=== PATIENT | female | born 1965 ===

== ENCOUNTER 2016-10-14 12:15 | Emergency (ER) | payer MEDICAID ==
[2016-10-14 12:36] VITALS: BMI 23.0
[2016-10-14 12:41] VITALS: BP 123/71; PULSE 84; RESP 20; TEMP 97.5; O2SAT 97
--- NOTE | 2016-10-14 13:32 | C.PDOC ---
History Of Present Illness 50 y/o female hx of prior back injury, seen by pain management in past for possible herniated disc, now complains of bilateral foot pain, low back pain and left knee pain x1 week with no new injury. pt taking ibuprofen with no improvement, pt no longer seeing pain management. Pt denies fever, chills, weakness, numbness, bladder or bowel dysfunction, saddle anesthesia or any other complaints. denies any psychiatric issues today. Time Seen by Provider: 10/14/16 12:54 Chief Complaint (Nursing): Back Pain History Per: Patient History/Exam Limitations: no limitations Onset/Duration Of Symptoms: Days Current Symptoms Are (Timing): Still Present Quality Of Discomfort: "Pain" Severity: Moderate Previous Symptoms: Chronic Pain Associated Symptoms: None Recent travel outside of the [place]: No Past Medical History Reviewed: Historical Data, Nursing Documentation, Vital Signs Vital Signs: Last Vital Signs Temp 97.5 F L 10/14/16 12:36 Pulse 84 10/14/16 12:36 Resp 20 10/14/16 12:36 BP 123/71 10/14/16 12:36 Pulse Ox 97 10/14/16 23:13 - Medical History PMH: Anxiety, Asthma, Back Problems (scoliosis, sciatica), Bipolar Disorder, Depression, Seizures - [facility] Procedures GROUP PSYCHOTHERAPY (06/27/16) INDIVIDUAL PSYCHOTHERAPY, BEHAVIORAL (06/27/16) Family History: States: Unknown Family Hx - Social History Hx Tobacco Use: Yes Hx Alcohol Use: No Hx Substance Use: Yes (percocet) - Immunization History Hx Tetanus Toxoid Vaccination: No Hx Influenza Vaccination: No Hx Pneumococcal Vaccination: Yes Review Of Systems Except As Marked, All Systems Reviewed And Found Negative. Constitutional: Negative for: Fever, Chills Musculoskeletal: Positive for: Back Pain, Foot Pain Neurological: Negative for: Weakness, Numbness Physical Exam - Physical Exam Appears: Non-toxic, No Acute Distress, Other (sititing comfortably on stretcher , able to bend to undress with no difficulty. ) Skin: Warm, Dry, No Rash Head: Atraumatic, Normacephalic Neck: Normal, Normal ROM, Supple Chest: Symmetrical Cardiovascular: Rhythm Regular, No Murmur Respiratory: Normal Breath Sounds, No Rales, No Rhonchi, No Wheezing Back: Vertebral Tenderness (lumbar), Paraspinal Tenderness (lumbar) Extremity: Normal ROM, Tenderness (to bilateral heels), Capillary Refill (<2 seconds), No Swelling, Other (no erythema) Extremity: Bilateral: Atraumatic Pulses: Left Dorsalis Pedis: Normal, Right Dorsalis Pedis: Normal Neurological/Psych: Oriented x3, Normal Speech, Normal Motor, Normal Sensation ED Course And Treatment O2 Sat by Pulse Oximetry: 97 (room air) Pulse Ox Interpretation: Normal Progress Note: Toradol, XR lumbar spine negative for fracture or dislocation. Medical Decision Making Medical Decision Making: no fx noted on ls spine xray. pt feeling some relief after toradol, will d/c with muscle relaxant. f/u ortho, med clinic and podiatry Disposition Counseled Patient/Family Regarding: Diagnosis, Need For Followup, Rx Given - Disposition [facility] [Outside] Podiatry Clinic [Outside] Disposition: HOME/ ROUTINE Disposition Time: 14:57 Condition: STABLE Additional Instructions: Follow up in Medical clinic- find out what days ortho clinic is; also suggest referral to pain management clinic. Follow up in podiatry clinic for foot pain. Take muscle relaxants 3 times a day- no driving or operating machinery, makes you sleepy. Continue taking Ibuprofen. Prescriptions: Cyclobenzaprine [Cyclobenzaprine HCl] 10 mg PO Q8 #9 tab Instructions: Back Pain (ED) Forms: General Discharge Instructions - Clinical Impression Clinical Impression: Low back pain - PA / DENTISTRY PROFESSOR / Resident Statement MD/DO has reviewed & agrees with the documentation as recorded. - Scribe Statement The provider has reviewed the documentation as recorded by the Herb Ingram All medical record entries made by the Herb were at my direction and personally dictated by me. I have reviewed the chart and agree that the record accurately reflects my personal performance of the history, physical exam, medical decision making, and the department course for this patient. I have also personally directed, reviewed, and agree with the discharge instructions and disposition.
--- NOTE | 2016-10-14 15:37 | RAD ---
PROCEDURE: Radiographs of the Lumbar Spine. HISTORY: midline lumbar back pain COMPARISON: No prior. FINDINGS: BONES: Normal alignment. No listhesis. No fracture. DISC SPACES: Unremarkable. OTHER FINDINGS: None. IMPRESSION: Unremarkable radiographs of the lumbar spine.
== END 2016-10-14 15:04 | disposition home or self-care (01) ==
LOC: C.ER 12:15
DX: M54.5 Low back pain (principal)
CPT/HCPCS: 72100; 96372; 99283; J1885

== ENCOUNTER 2016-11-30 23:38 | Emergency (ER) | payer MEDICAID ==
[2016-11-30 23:38] VITALS: BMI 23.0
[2016-11-30 23:55] VITALS: PULSE 77; RESP 16
--- NOTE | 2016-12-01 00:30 | C.PDOC ---
History Of Present Illness A 51 y/o F with a hx of chronic left knee pain, c/o left knee pain. Pt notes running out of her pain medication. Denies weakness, numbness, trauma, or any other complaints. Time Seen by Provider: 12/01/16 00:40 Chief Complaint (Nursing): Lower Extremity Problem/Injury History Per: Patient History/Exam Limitations: no limitations Onset/Duration Of Symptoms: Persistent (Chronic) Current Symptoms Are (Timing): Still Present Severity: Mild Recent travel outside of the [place]: No Additional History Per: Patient Past Medical History Reviewed: Historical Data, Nursing Documentation, Vital Signs Vital Signs: Last Vital Signs Temp 98 F 12/01/16 00:51 Pulse 77 12/01/16 00:51 Resp 16 12/01/16 00:51 BP 118/76 12/01/16 00:51 Pulse Ox 100 12/01/16 00:54 - Medical History PMH: Anxiety, Asthma, Back Problems (scoliosis, sciatica), Bipolar Disorder, Depression, Post Traumatic Stress Disorder, Seizures Denies: Diabetes, Hepatitis, HIV, HTN, Sexually Transmitted Disease - [facility] Procedures GROUP PSYCHOTHERAPY (06/27/16) INDIVIDUAL PSYCHOTHERAPY, BEHAVIORAL (06/27/16) Family History: States: Unknown Family Hx - Social History Hx Tobacco Use: Yes Hx Alcohol Use: No Hx Substance Use: No - Immunization History Hx Tetanus Toxoid Vaccination: No Hx Influenza Vaccination: Yes Hx Pneumococcal Vaccination: Yes Review Of Systems Except As Marked, All Systems Reviewed And Found Negative. Constitutional: Negative for: Other (Trauma) Musculoskeletal: Positive for: Leg Pain (Left knee pain) Neurological: Negative for: Weakness, Numbness Physical Exam - Physical Exam Appears: Non-toxic, No Acute Distress Skin: Warm, Dry Head: Atraumatic, Normacephalic Extremity: No Pedal Edema, Capillary Refill (<2secs), No Deformity, No Swelling , No Other (Congestion or redness) Pulses: Left Dorsalis Pedis: Normal, Right Dorsalis Pedis: Normal Neurological/Psych: Oriented x3, Normal Speech, Normal Cognition, Normal Motor, Normal Sensation, Other (No focal deficit) ED Course And Treatment O2 Sat by Pulse Oximetry: 100 (RA) Pulse Ox Interpretation: Normal Medical Decision Making Medical Decision Making: Impression: A 51 y/o F c/o left knee pain. Plans: -Toradol -Reassess Disposition Counseled Patient/Family Regarding: Diagnosis - Disposition Referrals: [facility] [Outside] Disposition: HOME/ ROUTINE Disposition Time: 00:29 Condition: STABLE Prescriptions: Ketorolac Tromethamine [Toradol] 10 mg PO Q8 #3 tab Forms: [facility] (South Korean) - POA Present On Arrival: None - Clinical Impression Clinical Impression: Arthralgia of knee - Scribe Statement The provider has reviewed the documentation as recorded by the Scribgiuliana portillo All medical record entries made by the Stevieibe were at my direction and personally dictated by me. I have reviewed the chart and agree that the record accurately reflects my personal performance of the history, physical exam, medical decision making, and the department course for this patient. I have also personally directed, reviewed, and agree with the discharge instructions and disposition.
[2016-12-01 00:52] VITALS: BP 118/76; TEMP 98
[2016-12-01 00:54] VITALS: O2SAT 100
== END 2016-12-01 00:52 | disposition home or self-care (01) ==
LOC: C.ER 23:38
DX: M25.562 Pain in left knee (principal)
CPT/HCPCS: 96372; 99284; J1885

== ENCOUNTER 2016-12-15 17:36 | Emergency (ER) | payer MEDICAID ==
[2016-12-15 17:37] VITALS: BMI 23.0
--- NOTE | 2016-12-15 18:43 | C.PDOC ---
History Of Present Illness 51 year old female presents to the ED with complaints of right sided back pain that radiates down to the right leg. Patient notes a history of sciatica and normally takes Toradol and Flexeril but has run out. She denies any new symptoms , trauma, urinary or bowel incontinence. No change in sensation. Pt has had the same symptom sin the past. No new symptoms. Time Seen by Provider: 12/15/16 18:08 Chief Complaint (Nursing): Back Pain History Per: Patient History/Exam Limitations: no limitations Onset/Duration Of Symptoms: Persistent Current Symptoms Are (Timing): Still Present Quality Of Discomfort: "Pain" Previous Symptoms: Back Pain (history of sciatica ) Associated Symptoms: None Recent travel outside of the [place]: No Additional History Per: Prior Records Past Medical History Reviewed: Historical Data, Nursing Documentation, Vital Signs Vital Signs: Last Vital Signs Temp 98.6 F 12/15/16 19:21 Pulse 78 12/15/16 19:21 Resp 18 12/15/16 19:21 BP 106/68 12/15/16 19:21 Pulse Ox 98 12/15/16 21:29 - Medical History PMH: Anxiety, Asthma, Back Problems (scoliosis, sciatica), Bipolar Disorder, Depression, Post Traumatic Stress Disorder, Seizures - [facility] Procedures GROUP PSYCHOTHERAPY (06/27/16) INDIVIDUAL PSYCHOTHERAPY, BEHAVIORAL (06/27/16) Family History: States: Unknown Family Hx - Social History Hx Tobacco Use: Yes Hx Alcohol Use: No Hx Substance Use: No - Immunization History Hx Tetanus Toxoid Vaccination: No Hx Influenza Vaccination: Yes Hx Pneumococcal Vaccination: Yes Review Of Systems Constitutional: Negative for: Fever, Chills Cardiovascular: Negative for: Chest Pain Respiratory: Negative for: Shortness of Breath Gastrointestinal: Negative for: Nausea Musculoskeletal: Positive for: Back Pain, Leg Pain (right leg pain radiating from back ) Neurological: Negative for: Weakness, Numbness Physical Exam - Physical Exam Appears: Non-toxic, No Acute Distress, Other (Patient ambulating around ED ) Skin: Warm, Dry Head: Atraumatic Eye(s): bilateral: Normal Inspection, EOMI Nose: Normal Oral Mucosa: Moist Neck: Normal ROM, No Paracervical Tenderness, Supple Chest: Symmetrical Cardiovascular: Rhythm Regular Respiratory: Normal Breath Sounds, No Accessory Muscle Use Gastrointestinal/Abdominal: Soft, No Tenderness Back: No CVA Tenderness, No Vertebral Tenderness, Paraspinal Tenderness (right sided paralumbar tenderness) Extremity: Normal ROM, No Tenderness, Capillary Refill (good capillary refill, less than 2 seconds ) Extremity: Bilateral: Atraumatic Pulses: Left Dorsalis Pedis: Normal, Right Dorsalis Pedis: Normal Neurological/Psych: Oriented x3, Normal Speech, Normal Cognition, Normal Motor, Normal Sensation Gait: Steady ED Course And Treatment O2 Sat by Pulse Oximetry: 98 (room air ) Progress Note: Patient was given Decadron Inj, Toradol, and and Flexeril. On reassessment, patient is resting comfortably, with improvement of back pain. Patient remains afebrile, with no bony tenderness, extremity numbness or weakness, or abdominal pain. Patient is ambulatory in the emergency department with no signs of discomfort. Patient was advised to follow up with physician/ clinic in 1-2 days. Disposition - Disposition Disposition: HOME/ ROUTINE Disposition Time: 18:41 Condition: STABLE Additional Instructions: Follow up with primary medical doctor in 1-3 days without fail for further evaluation. Take medications as prescribed. Return to the emergency department at any time if symptoms persist or worsen. Prescriptions: Cyclobenzaprine [Cyclobenzaprine HCl] 10 mg PO TID #20 tab Ketorolac Tromethamine [Toradol] 10 mg PO Q6 PRN #20 tab PRN Reason: Pain, Moderate (4-7) Instructions: Sciatica (ED) Forms: [facility] (Algerian) - Clinical Impression Clinical Impression: Sciatica - Scribe Statement The provider has reviewed the documentation as recorded by the Scribgiuliana Hendrix All medical record entries made by the Stevieibgiuliana were at my direction and personally dictated by me. I have reviewed the chart and agree that the record accurately reflects my personal performance of the history, physical exam, medical decision making, and the department course for this patient. I have also personally directed, reviewed, and agree with the discharge instructions and disposition.
[2016-12-15 19:22] VITALS: BP 106/68; PULSE 78; RESP 18; TEMP 98.6
[2016-12-15] MEDS ORDERED: Dexamethasone 4 mg/1 ml ONE (19:27)
[2016-12-15] MEDS ORDERED: Dexamethasone 4 mg/1 ml IM STA (19:29)
[2016-12-15 21:17] VITALS: O2SAT 98
== END 2016-12-15 19:37 | disposition home or self-care (01) ==
LOC: C.ER 17:36
DX: M54.31 Sciatica, right side (principal)
CPT/HCPCS: 96372; 99283; J1100; J1885

== ENCOUNTER 2016-12-27 09:56 | Emergency (ER) | payer MEDICAID ==
[2016-12-27 09:56] VITALS: BMI 23.0
[2016-12-27 10:06] VITALS: RESP 18; TEMP 98.6
[2016-12-27 11:32] LABS: URINE BILIRUBIN NEGATIVE (NEGATIVE); URINE BLOOD NEGATIVE (NEGATIVE); URINE COLOR Yellow (YELLOW); URINE GLUCOSE (UA) NORMAL (Normal); URINE KETONE NEGATIVE (NEGATIVE); URINE LEUKOCYTE ESTERASE TRACE Leu/uL (Negative); URINE PROTEIN NEGATIVE (NEGATIVE); URINE UROBILINOGEN NORMAL mg/dL (0.2-1.0); WBC URINE 1 /hpf (0-5)
--- NOTE | 2016-12-27 12:04 | C.PDOC ---
History Of Present Illness Pt c/o lower back pain. Time Seen by Provider: 12/27/16 10:28 Chief Complaint (Nursing): Back Pain History Per: Patient Onset/Duration Of Symptoms: Days (chronic), Waxing/Waning Current Symptoms Are (Timing): Still Present Quality Of Discomfort: "Pain" Severity: Moderate Previous Symptoms: Back Pain Exacerbating Factor(s): Movement Additional History Per: Prior Records Past Medical History Reviewed: Historical Data, Nursing Documentation, Vital Signs Vital Signs: Last Vital Signs Temp 98.6 F 12/27/16 10:06 Pulse 76 12/27/16 10:06 Resp 18 12/27/16 10:06 BP 99/67 L 12/27/16 10:06 Pulse Ox 95 12/27/16 10:06 - Medical History PMH: Anxiety, Asthma, Back Problems (scoliosis, sciatica), Bipolar Disorder, Depression, Post Traumatic Stress Disorder, Seizures Surgical History: No Surg Hx - [facility] Procedures GROUP PSYCHOTHERAPY (06/27/16) INDIVIDUAL PSYCHOTHERAPY, BEHAVIORAL (06/27/16) Family History: States: Unknown Family Hx - Social History Hx Tobacco Use: Yes Hx Alcohol Use: No Hx Substance Use: No - Immunization History Hx Tetanus Toxoid Vaccination: No Hx Influenza Vaccination: Yes Hx Pneumococcal Vaccination: Yes Review Of Systems Except As Marked, All Systems Reviewed And Found Negative. Constitutional: Negative for: Fever, Weakness Cardiovascular: Negative for: Chest Pain Respiratory: Negative for: Shortness of Breath Gastrointestinal: Positive for: Constipation. Negative for: Vomiting Genitourinary: Positive for: Dysuria (?) Musculoskeletal: Positive for: Back Pain Skin: Negative for: Rash Neurological: Negative for: Weakness, Numbness, Seizures, Altered Mental Status Physical Exam - Physical Exam Appears: Non-toxic, No Acute Distress Skin: Normal Color, Warm, Dry, No Rash Head: Atraumatic, Normacephalic Eye(s): bilateral: Normal Inspection, PERRL, EOMI Neck: Normal ROM, Supple Cardiovascular: Rhythm Regular Respiratory: Normal Breath Sounds, No Accessory Muscle Use Gastrointestinal/Abdominal: Soft Back: No CVA Tenderness, No Vertebral Tenderness, Paraspinal Tenderness (lumbar) Extremity: Normal ROM Neurological/Psych: Oriented x3, Normal Motor, Normal Sensation ED Course And Treatment O2 Sat by Pulse Oximetry: 95 Pulse Ox Interpretation: Normal Reassessment Condition: Improved Disposition Counseled Patient/Family Regarding: Studies Performed, Diagnosis, Need For Followup, Rx Given - Disposition Disposition: HOME/ ROUTINE Disposition Time: 12:04 Condition: IMPROVED Additional Instructions: Follow up with your doctor for further evaluation and treatment. Return to the ER if you develop fever, vomiting, weakness, numbness, worsening of symptoms or if you have any other concerns. Prescriptions: Docusate [Colace] 100 mg PO BID PRN #60 cap PRN Reason: Constipation Famotidine [Pepcid] 20 mg PO BID #30 tab Naproxen [Naprosyn] 1 tab PO BID PRN #20 tab PRN Reason: Pain Instructions: Chronic Back Pain (ED) Forms: [facility] (Nepali) - Clinical Impression Clinical Impression: Lumbar back pain
[2016-12-27 12:10] VITALS: BP 101/72; PULSE 71; O2SAT 98
== END 2016-12-27 12:17 | disposition home or self-care (01) ==
LOC: SUPCPDRO 09:56 → C.ER 09:56
DX: M54.5 Low back pain (principal)
CPT/HCPCS: 81001; 87086; 96372; 99284; J1885

== ENCOUNTER 2017-02-08 19:16 | Emergency (ER) | payer MEDICAID ==
[2017-02-08 19:17] VITALS: BMI 23.0
[2017-02-08 19:33] VITALS: TEMP 98.6
[2017-02-08] MEDS ORDERED: Iohexol 240 (50 ml) PO STA (20:33)
[2017-02-08] MEDS ORDERED: Sodium Chloride 0.9% 1,000 ML IV ONE (20:33)
[2017-02-08 21:04] LABS: BASO % 0.6 % (0.0-2.0); EOS # 0.3 K/uL (0.0-0.7); EOS % 3.7 % (0.0-4.0); HEMATOCRIT 33.9 % (34.0-47.0); LYMPH # 2.4 K/uL (1.0-4.3); LYMPH % 34.9 % (20.0-40.0); MEAN CELL VOLUME 89.2 fL (81.0-99.0); MEAN CORPUSCULAR HEMOGLOBIN 30.5 pg (27.0-31.0); MEAN CORPUSCULAR HGB CONC 34.2 g/dL (33.0-37.0); MEAN PLATELET VOLUME 8.9 fL (7.2-11.7); MONO # 0.4 K/uL (0.0-0.8); MONO % 6.3 % (0.0-10.0); NRBC % 0.1 % (0.0-2.0); RED CELL DISTRIBUTION WIDTH 13.2 % (11.5-14.5); WHITE BLOOD COUNT 6.9 K/uL (4.8-10.8)
[2017-02-08] MEDS ORDERED: Sodium Chloride 0.9% 1,000 ML ONE (21:05)
[2017-02-08] MEDS ORDERED: Iohexol 240 (50 ml) ONE (21:05)
[2017-02-08 21:10] LABS: CHLORIDE 104 mmol/L (98-107); SODIUM 137 mmol/L (132-148)
[2017-02-08 21:12] LABS: BILIRUBIN,TOTAL 0.4 mg/dL (0.2-1.3); GFR AFRICAN-AMERICAN > 60
[2017-02-08 21:13] LABS: ALB/GLOB RATIO 1.4 (1.0-2.1); ALKALINE PHOSPHATASE 74 U/L (38-126); ALT/SGPT 26 U/L (9-52); AST/SGOT 17 U/L (14-36); BLOOD UREA NITROGEN 21 mg/dL (7-17); CALCIUM 9.4 mg/dl (8.6-10.4); CARBON DIOXIDE 21 mmol/L (22-30); GLUCOSE,RANDOM 92 mg/dL (65-105); TOTAL PROTEIN 7.3 g/dL (6.3-8.3)
[2017-02-08 21:15] LABS: URINE BACTERIA RARE (<OCC); URINE BILIRUBIN NEGATIVE (NEGATIVE); URINE BLOOD NEGATIVE (NEGATIVE); URINE COLOR Yellow (YELLOW); URINE GLUCOSE (UA) NORMAL (Normal); URINE KETONE NEGATIVE (NEGATIVE); URINE LEUKOCYTE ESTERASE NEG Leu/uL (Negative); URINE PROTEIN NEGATIVE (NEGATIVE); URINE UROBILINOGEN NORMAL mg/dL (0.2-1.0); WBC URINE < 1 /hpf (0-5)
--- NOTE | 2017-02-08 21:23 | C.PDOC ---
History Of Present Illness Patient is a 51 y/o menopausal female who presents to the ED with a complaint of diffuse lower abdominal pain that began approximately 3 weeks ago. Patient states that when in pain, her abdomen is distended and bloated; describes pain as constant and severe. Denies any associated nausea, vomiting, or vaginal bleeding. Patient admits to normal bowel movements and notes a similar episode a few months ago. Patient experienced constipation and took Miralax; symptoms were resolved. she does take laxatives daily to combat the constipation caused by her medication. Denies fever and chills. No other complaints at this time. Time Seen by Provider: 02/08/17 20:21 Chief Complaint (Nursing): Abdominal Pain History Per: Patient History/Exam Limitations: no limitations Onset/Duration Of Symptoms: Days (approximately 3 weeks) Current Symptoms Are (Timing): Still Present Severity: Severe Location Of Pain/Discomfort: Diffuse (along lower abdomen) Past Medical History Reviewed: Historical Data, Nursing Documentation, Vital Signs Vital Signs: Last Vital Signs Temp 98.6 F 02/08/17 19:24 Pulse 75 02/08/17 21:59 Resp 18 02/08/17 21:59 BP 125/80 02/08/17 21:59 Pulse Ox 99 02/08/17 22:53 - Medical History PMH: Anxiety, Asthma, Back Problems (scoliosis, sciatica), Bipolar Disorder, Depression, Post Traumatic Stress Disorder, Seizures Denies: HTN Surgical History: No Surg Hx - [facility] Procedures GROUP PSYCHOTHERAPY (06/27/16) INDIVIDUAL PSYCHOTHERAPY, BEHAVIORAL (06/27/16) Family History: States: Unknown Family Hx - Social History Hx Tobacco Use: Yes Hx Alcohol Use: No Hx Substance Use: No - Immunization History Hx Tetanus Toxoid Vaccination: No Hx Influenza Vaccination: Yes Hx Pneumococcal Vaccination: Yes Review Of Systems Constitutional: Negative for: Fever, Chills Cardiovascular: Negative for: Chest Pain Respiratory: Negative for: Shortness of Breath Gastrointestinal: Positive for: Abdominal Pain (diffuse lower abdomen). Negative for: Nausea, Vomiting, Constipation Genitourinary: Positive for: Other. Negative for: Dysuria, Vaginal Bleeding Physical Exam - Physical Exam Appears: Well, Non-toxic, In Acute Distress Skin: Normal Color, Warm, Dry Head: Atraumatic, Normacephalic Oral Mucosa: Moist Chest: Symmetrical Cardiovascular: Rhythm Regular, No Murmur Respiratory: Normal Breath Sounds, No Rales, No Rhonchi, No Wheezing Gastrointestinal/Abdominal: Bowel Sounds (normal but quiet; non-tympanitic), Tenderness (diffuse over lower abdomen), Distention (large, rotund), No Guarding , No Rebound, Other (no fluid) Neurological/Psych: Oriented x3, Normal Speech, Normal Cognition ED Course And Treatment - Laboratory Results Result Diagrams: 02/08/17 20:58 02/08/17 20:58 Lab Interpretation: Normal Urine POC: Negative O2 Sat by Pulse Oximetry: 99 Pulse Ox Interpretation: Normal - CT Scan/US CT A/P Other Rad Studies (CT/US): Read By Radiologist, Radiology Report Reviewed CT/US Interpretation: No acute intra-abdominal pathology, as detailed above. Progress Note: CT A/P ordered; Omnipaque, Morphine, and IV fluids administered. Reevaluation Time: 23:00 Reassessment Condition: Unchanged (Patient still c/o abdominal pain and cramping. Treated with Toradol and Bentyl.) Disposition Counseled Patient/Family Regarding: Studies Performed, Diagnosis, Need For Followup, Rx Given - Disposition Disposition: HOME/ ROUTINE Disposition Time: 23:04 Condition: IMPROVED Additional Instructions: Follow up with your doctor at [facility] at your scheduled appointment on 02/10. Prescriptions: Ketorolac Tromethamine [Toradol] 10 mg PO QID PRN #20 tab PRN Reason: Pain, Severe (8-10) Instructions: Acute Abdominal Pain (ED) Forms: [facility] (Moroccan) - Clinical Impression Clinical Impression: Abdominal pain - Scribe Statement The provider has reviewed the documentation as recorded by the Scribe Emili Gaines All medical record entries made by the Scribe were at my direction and personally dictated by me. I have reviewed the chart and agree that the record accurately reflects my personal performance of the history, physical exam, medical decision making, and the department course for this patient. I have also personally directed, reviewed, and agree with the discharge instructions and disposition.
[2017-02-08 22:00] VITALS: BP 125/80; PULSE 75; RESP 18
[2017-02-08] MEDS ORDERED: Iodixanol 320 MG/ML 100 ML BOTTLE IV ONE (22:17)
--- NOTE | 2017-02-08 22:49 | CT ---
EXAM: CT Abdomen and Pelvis With Intravenous Contrast CLINICAL HISTORY: 51 years old, female; Pain and signs and symptoms; Bloating; Abdominal pain; Generalized; Additional info: Abd pain TECHNIQUE: Axial computed tomography images of the abdomen and pelvis with intravenous contrast. All CT scans at this facility use one or more dose reduction techniques, viz.: automated exposure control; ma/kV adjustment per patient size (including targeted exams where dose is matched to indication; i.e. head); or iterative reconstruction technique. Coronal and sagittal reformatted images were created and reviewed. CONTRAST: 100 mL of visipaque 320 administered intravenously. COMPARISON: No relevant prior studies available. FINDINGS: Lower thorax: The bilateral lung bases are clear. ABDOMEN: Liver: No acute findings. Gallbladder and bile ducts: The gallbladder is decompressed. No calcified stones. No significant intra- or extrahepatic biliary ductal dilation. Pancreas: Enhances homogeneously. No ductal dilation. No discrete mass. Spleen: No acute findings. Adrenals: No acute findings. Kidneys and ureters: No acute findings. No hydronephrosis or renal calculi. No discrete solid mass. PELVIS: Bladder: No acute findings. Reproductive: No acute findings. Appendix: The air filled appendix is of normal caliber (series 3, image 117; series 601, image 54). ABDOMEN and PELVIS: Stomach and bowel: Oral contrast extends to the distal small bowel, without obstruction. No mucosal thickening. Peritoneum: No significant fluid collection. No free air. Lymph nodes: No pathologically enlarged lymph nodes. Vasculature: Unremarkable. Bones: No acute fracture. IMPRESSION: No acute intra-abdominal pathology, as detailed above.
[2017-02-08 22:53] VITALS: O2SAT 99
== END 2017-02-08 23:23 | disposition home or self-care (01) ==
LOC: C.ER 19:16
DX: R10.9 Unspecified abdominal pain (principal); F41.9 Anxiety disorder, unspecified
CPT/HCPCS: 74177; 80053; 81001; 83690; 84703; 85025; 96361; 96372; 96374; 96375; 99285; J0500; J1885; J2270; J7040; Q9966; Q9967

== ENCOUNTER 2017-05-30 16:20 | Emergency (ER) | payer MEDICAID ==
[2017-05-30 16:20] VITALS: BMI 23.0
[2017-05-30 16:23] VITALS: TEMP 97.9
--- NOTE | 2017-05-30 16:33 | C.PDOC ---
History Of Present Illness 51-year-old female, PMHx includes chronic knee pain, presents to the emergency department with complaints of left knee pain that is worsening for the past week since her doctor gave her an injection. She is taking Flexeril and OTC medications with no relief. Secondary complaint is a daily headache for a month. States she has a Hx of migraines in past but hasn't had one in years. Patient denies fever, vomiting, shortness of breath, chest pain, or any other associated symptoms. No other complaints at this time. Time Seen by Provider: 05/30/17 16:30 Chief Complaint (Nursing): Lower Extremity Problem/Injury History Per: Patient History/Exam Limitations: no limitations Past Medical History Reviewed: Historical Data, Nursing Documentation, Vital Signs Vital Signs: Last Vital Signs Temp 97.9 F 05/30/17 16:22 Pulse 76 05/30/17 18:01 Resp 16 05/30/17 18:01 BP 138/79 05/30/17 18:01 Pulse Ox 98 05/30/17 18:01 - Medical History PMH: Anxiety, Asthma, Back Problems (scoliosis, sciatica), Bipolar Disorder, Depression, Post Traumatic Stress Disorder, Seizures Denies: HTN - [facility] Procedures GROUP PSYCHOTHERAPY (06/27/16) INDIVIDUAL PSYCHOTHERAPY, BEHAVIORAL (06/27/16) Family History: States: No Known Family Hx - Social History Hx Tobacco Use: Yes Hx Alcohol Use: No Hx Substance Use: No - Immunization History Hx Tetanus Toxoid Vaccination: No Hx Influenza Vaccination: Yes Hx Pneumococcal Vaccination: Yes Review Of Systems Gastrointestinal: Negative for: Vomiting Musculoskeletal: Positive for: Other (L knee pain) Neurological: Negative for: Weakness, Numbness Physical Exam - Physical Exam Appears: Non-toxic, No Acute Distress Skin: Warm, Dry, No Rash Extremity: Normal ROM, No Pedal Edema, No Calf Tenderness, Capillary Refill (<2 seconds), No Deformity, No Swelling, Other (L Knee: No erythema, no swelling, no warmth. ) Pulses: Left Dorsalis Pedis: Normal, Right Dorsalis Pedis: Normal Neurological/Psych: Oriented x3 ED Course And Treatment O2 Sat by Pulse Oximetry: 97 (on RA) Pulse Ox Interpretation: Normal Disposition - Disposition Disposition: HOME/ ROUTINE Disposition Time: 17:48 Condition: STABLE Additional Instructions: Please follow up with your doctor. Return to the ER for any worsening symptoms or for any other concerns. Prescriptions: Cyclobenzaprine [Cyclobenzaprine HCl] 10 mg PO Q8H PRN #20 tab PRN Reason: Pain, Moderate (4-7) Naproxen [Naprosyn] 500 mg PO Q12H PRN #10 tablet PRN Reason: Pain, Moderate (4-7) Forms: General Discharge Instructions, [facility] (Polish) - Clinical Impression Clinical Impression: Headache, Knee pain - Scribe Statement The provider has reviewed the documentation as recorded by the Scribe (Jolly Rivas) All medical record entries made by the Scribe were at my direction and personally dictated by me. I have reviewed the chart and agree that the record accurately reflects my personal performance of the history, physical exam, medical decision making, and the department course for this patient. I have also personally directed, reviewed, and agree with the discharge instructions and disposition.
--- NOTE | 2017-05-30 17:32 | CT ---
PROCEDURE: CT HEAD WITHOUT CONTRAST. HISTORY: headache COMPARISON: None available. TECHNIQUE: Axial computed tomography images were obtained through the head/brain without intravenous contrast. Radiation dose: Total exam DLP = 848.45 mGy-cm. This CT exam was performed using one or more of the following dose reduction techniques: Automated exposure control, adjustment of the mA and/or kV according to patient size, and/or use of iterative reconstruction technique. FINDINGS: HEMORRHAGE: No intracranial hemorrhage. BRAIN: No mass effect or edema. The mccullough-white matter differentiation appears intact.Please note that MRI with diffusion imaging is more sensitive in the detection of acute ischemic event. VENTRICLES: No hydrocephalus. CALVARIUM: Unremarkable. PARANASAL SINUSES: Unremarkable as visualized. No significant inflammatory changes. MASTOID AIR CELLS: Unremarkable as visualized. No inflammatory changes. OTHER FINDINGS: None. IMPRESSION: No acute intracranial pathology identified.
[2017-05-30 18:02] VITALS: BP 138/79; PULSE 76; RESP 16
[2017-05-30 18:24] VITALS: O2SAT 97
--- NOTE | 2017-05-31 08:50 | RAD ---
PROCEDURE: Left Knee Radiographs. HISTORY: Pain. COMPARISON: None. FINDINGS: BONES: No acute fracture. JOINTS: Unremarkable. JOINT EFFUSION: None. OTHER FINDINGS: None. IMPRESSION: No demonstrated fracture or dislocation.
== END 2017-05-30 18:01 | disposition home or self-care (01) ==
LOC: C.ER 16:20
DX: R51 Headache (principal); M25.562 Pain in left knee
CPT/HCPCS: 70450; 73562; 96372; 99284; J1885

== ENCOUNTER 2017-06-12 11:41 | Emergency (ER) | payer MEDICAID ==
[2017-06-12 11:41] VITALS: BMI 23.0
[2017-06-12 12:13] VITALS: BP 106/74; PULSE 87; RESP 18; TEMP 98.7; O2SAT 98
[2017-06-12] MEDS ORDERED: Lidocaine 5% Patch TD STA (13:01)
--- NOTE | 2017-06-12 13:06 | C.PDOC ---
History Of Present Illness 51 y/o female with history of chronic back pain and sciatica complains of flare up of her sciatica. She states she was seen in ED last week for knee pain and headache, she has been taking Naproxen and Flexeril without improvement. Patient states she has been very stressed taking care of her ill mother. She has pain to lower right back which radiates down the leg. Denies any fever, chills, urinary symptoms, incontinence, numbness, weakness. Time Seen by Provider: 06/12/17 12:52 Chief Complaint (Nursing): Back Pain History Per: Patient History/Exam Limitations: no limitations Onset/Duration Of Symptoms: Days Current Symptoms Are (Timing): Still Present Quality Of Discomfort: "Pain" Past Medical History Reviewed: Historical Data, Nursing Documentation, Vital Signs Vital Signs: Last Vital Signs Temp 98.7 F 06/12/17 12:11 Pulse 87 06/12/17 12:11 Resp 18 06/12/17 12:11 BP 106/74 06/12/17 12:11 Pulse Ox 98 06/12/17 14:10 - Medical History PMH: Anxiety, Asthma, Back Problems (scoliosis, sciatica), Bipolar Disorder, Depression, Post Traumatic Stress Disorder, Seizures Surgical History: No Surg Hx - [facility] Procedures GROUP PSYCHOTHERAPY (06/27/16) INDIVIDUAL PSYCHOTHERAPY, BEHAVIORAL (06/27/16) Family History: States: No Known Family Hx - Social History Hx Tobacco Use: Yes Hx Alcohol Use: No Hx Substance Use: No - Immunization History Hx Tetanus Toxoid Vaccination: No Hx Influenza Vaccination: Yes Hx Pneumococcal Vaccination: No Review Of Systems Cardiovascular: Negative for: Chest Pain Gastrointestinal: Negative for: Nausea, Vomiting Genitourinary: Negative for: Dysuria Musculoskeletal: Positive for: Back Pain, Leg Pain Skin: Negative for: Rash Physical Exam - Physical Exam Appears: Non-toxic, Other (Anxious appearing) Skin: Warm, Dry, No Diaphoretic, No Rash, No Ecchymosis Head: Atraumatic, Normacephalic Eye(s): bilateral: Normal Inspection, PERRL, EOMI Oral Mucosa: Moist Neck: Normal ROM, No Midline Cervical Tenderness, No Paracervical Tenderness, Supple Cardiovascular: Rhythm Regular, No Murmur Respiratory: Normal Breath Sounds, No Accessory Muscle Use, No Rales, No Rhonchi , No Wheezing Gastrointestinal/Abdominal: Soft, No Tenderness, No Guarding, No Rebound Back: Normal Inspection, No CVA Tenderness, No Straight Leg Raising, Other ( Mild paralumbar tenderness. No vertebral tenderness. No swelling ) Extremity: Bilateral: Atraumatic, Normal Color And Temperature, Normal ROM Neurological/Psych: Oriented x3, Normal Speech, Normal Motor, Normal Sensation Gait: Steady ED Course And Treatment O2 Sat by Pulse Oximetry: 98 (RA) Pulse Ox Interpretation: Normal Medical Decision Making Medical Decision Making: Impression: Back pain exacerbation [place] Review[place]: 05/31/2017 CLONAZEPAM 1 MG TABLET 90.0 04/29/2017 CLONAZEPAM 1 MG TABLET 90.0 03/31/2017 CLONAZEPAM 1 MG TABLET 90.0 Plan: * Toradol * Valium * Lidoderm Re-assess: Patient reports pain is about the same. She states that every time she comes to ED they give her same medications and wants something stronger. I explain to the patient the ER does not treat chronic pain and she needs to see pain management. Will give Rx. Disposition Counseled Patient/Family Regarding: Diagnosis, Need For Followup, Rx Given - Disposition Referrals: Jluis Abreu MD [Medical Doctor] - Disposition: HOME/ ROUTINE Disposition Time: 13:38 Condition: STABLE Additional Instructions: Continue taking your usual medications Take Prednisone for back pain for few days It is important that you follow up with your primary doctor or pain management for chronic pain. Prescriptions: Prednisone 50 mg PO DAILY #5 tablet Instructions: Sciatica (ED) Forms: [employer] [facility] (Zimbabwean) - POA Present On Arrival: None - Clinical Impression Clinical Impression: Sciatica, Exacerbation of chronic back pain - PA / BOX ESTIMATOR / Resident Statement MD/DO has reviewed & agrees with the documentation as recorded. - Scribe Statement The provider has reviewed the documentation as recorded by the Herb Castelan All medical record entries made by the Herb were at my direction and personally dictated by me. I have reviewed the chart and agree that the record accurately reflects my personal performance of the history, physical exam, medical decision making, and the department course for this patient. I have also personally directed, reviewed, and agree with the discharge instructions and disposition.
[2017-06-12] MEDS ORDERED: Lidocaine 5% Patch TD ONE (13:09)
== END 2017-06-12 14:00 | disposition home or self-care (01) ==
LOC: C.ER 11:41
DX: M54.40 Lumbago with sciatica, unspecified side (principal); G89.29 Other chronic pain
CPT/HCPCS: 96372; 99283; J1885

== ENCOUNTER 2017-06-13 03:41 | Emergency (ER) | payer MEDICAID ==
[2017-06-13 03:41] VITALS: BMI 23.0
[2017-06-13 03:54] VITALS: BP 106/72; PULSE 80; RESP 18; TEMP 97.6; O2SAT 100
[2017-06-13] MEDS ORDERED: Tramadol 25 mg PO STA (04:10)
--- NOTE | 2017-06-13 04:13 | C.PDOC ---
History Of Present Illness 51 year old female with a Hx of sciatica presents to the ER with a complaint of sciatica exacerbation. Patient reports she has been in the hospital over 12 hours with her mother and states she has been sitting on a hard chair. Patient was seen earlier today at 13:00 for the same complaint and treated with toradol and valium, she is now requesting the same. Denies weakness, numbness, or other acute complaint. Pt is being seen by pain management for this pain but states hasnt kept her appointment bc she's busy caring for her ill mother. Time Seen by Provider: 06/13/17 03:58 Chief Complaint (Nursing): Lower Extremity Problem/Injury History Per: Patient History/Exam Limitations: no limitations Onset/Duration Of Symptoms: Hrs Current Symptoms Are (Timing): Still Present Recent travel outside of the [place]: No Past Medical History Reviewed: Historical Data, Nursing Documentation, Vital Signs Vital Signs: Last Vital Signs Temp 97.6 F 06/13/17 03:52 Pulse 80 06/13/17 03:52 Resp 18 06/13/17 03:52 BP 106/72 06/13/17 03:52 Pulse Ox 100 06/13/17 04:51 - Medical History PMH: Anxiety, Asthma, Back Problems (scoliosis, sciatica), Bipolar Disorder, Depression, Post Traumatic Stress Disorder, Seizures - [facility] Procedures GROUP PSYCHOTHERAPY (06/27/16) INDIVIDUAL PSYCHOTHERAPY, BEHAVIORAL (06/27/16) Family History: States: Unknown Family Hx - Social History Hx Tobacco Use: Yes Hx Alcohol Use: No Hx Substance Use: No - Immunization History Hx Tetanus Toxoid Vaccination: No Hx Influenza Vaccination: Yes Hx Pneumococcal Vaccination: No Review Of Systems Musculoskeletal: Positive for: Back Pain Neurological: Negative for: Weakness, Numbness Physical Exam - Physical Exam Appears: Non-toxic, No Acute Distress Skin: Normal Color, Warm, Dry Head: Atraumatic, Normacephalic Eye(s): bilateral: Normal Inspection Gastrointestinal/Abdominal: Normal Exam Back: Normal Inspection, No Vertebral Tenderness, No Decreased ROM, No Paraspinal Tenderness, No Straight Leg Raising Extremity: Normal ROM (x4) Extremity: Bilateral: Atraumatic Neurological/Psych: Oriented x3, Normal Speech, Normal Motor, Normal Sensation Gait: Steady ED Course And Treatment O2 Sat by Pulse Oximetry: 100 (Room air) Pulse Ox Interpretation: Normal Progress Note: Tramadol administered with relief of pain. Patient is resting comfortably in the ER, able to ambulate without difficulty or pain, in no acute distress. Will discharge home with instructions to take OTC pain medication as needed and to follow up with PMD. Disposition Counseled Patient/Family Regarding: Diagnosis, Need For Followup - Disposition Referrals: Jluis Abreu MD [Primary Care Provider] - Disposition: HOME/ ROUTINE Disposition Time: 04:11 Condition: STABLE Additional Instructions: Please follow up with your pain management doctor Return to ER if worse Instructions: Sciatica (ED) Forms: [employer] (Spanish) - Clinical Impression Clinical Impression: Sciatica - PA / BUTTING SAW OPERATOR / Resident Statement MD/DO has reviewed & agrees with the documentation as recorded. - Scribe Statement The provider has reviewed the documentation as recorded by the Scribgiuliana Cole All medical record entries made by the Stevieibgiuliana were at my direction and personally dictated by me. I have reviewed the chart and agree that the record accurately reflects my personal performance of the history, physical exam, medical decision making, and the department course for this patient. I have also personally directed, reviewed, and agree with the discharge instructions and disposition.
== END 2017-06-13 04:40 | disposition home or self-care (01) ==
LOC: C.ER 03:41 → SUPCPDRO 03:41 → C.ER 04:40
DX: M54.30 Sciatica, unspecified side (principal)

== ENCOUNTER 2017-07-16 16:53 | Emergency (ER) | payer MEDICAID ==
[2017-07-16 16:54] VITALS: BMI 23.0
[2017-07-16 18:42] LABS: BASO % 0.6 % (0.0-2.0); EOS # 0.2 K/uL (0.0-0.7); HEMOGLOBIN 12.9 g/dL (11.0-16.0); LYMPH # 2.2 K/uL (1.0-4.3); MEAN CELL VOLUME 88.4 fL (81.0-99.0); MEAN CORPUSCULAR HEMOGLOBIN 30.3 pg (27.0-31.0); MEAN CORPUSCULAR HGB CONC 34.2 g/dL (33.0-37.0); MONO # 0.4 K/uL (0.0-0.8); MONO % 5.2 % (0.0-10.0); NEUT # 5.3 K/uL (1.8-7.0); NEUT % 64.2 % (50.0-75.0); NRBC % 0.1 % (0.0-2.0); RBC 4.27 Mil/uL (3.80-5.20); RED CELL DISTRIBUTION WIDTH 14.5 % (11.5-14.5); WHITE BLOOD COUNT 8.3 K/uL (4.8-10.8)
[2017-07-16 18:53] LABS: HCG,QUALITATIVE URINE NEGATIVE (NEGATIVE)
[2017-07-16 18:55] LABS: CALCIUM 8.9 mg/dl (8.6-10.4); GFR AFRICAN-AMERICAN > 60; GFR NON-AFRICAN AMERICAN > 60; LIPASE 55 U/L (23-300)
[2017-07-16 18:56] LABS: SQUAMOUS EPITHIAL < 1 /hpf (0-5); URINE BILIRUBIN NEGATIVE (NEGATIVE); URINE BLOOD NEGATIVE (NEGATIVE); URINE CLARITY Clear (Clear); URINE COLOR Yellow (YELLOW); URINE GLUCOSE (UA) NORMAL (Normal); URINE LEUKOCYTE ESTERASE NEG Leu/uL (Negative); URINE PROTEIN NEGATIVE (NEGATIVE); URINE UROBILINOGEN NORMAL mg/dL (0.2-1.0)
[2017-07-16 18:56] LABS: ALB/GLOB RATIO 1.4 (1.0-2.1); ALBUMIN 4.6 g/dL (3.5-5.0); ALT/SGPT 23 U/L (9-52); AST/SGOT 35 U/L (14-36); BLOOD UREA NITROGEN 14 mg/dL (7-17)
[2017-07-16 19:03] LABS: BARBITURATES, UR NEGATIVE (NEGATIVE); BENZODIAZEPINES, UR NEGATIVE (NEGATIVE); OPIATES, UR NEGATIVE (NEGATIVE); PHENCYCLIDINE, UR NEGATIVE (NEGATIVE)
--- NOTE | 2017-07-16 19:10 | C.PDOC ---
Time Seen by Provider: 07/16/17 18:07 Chief Complaint (Nursing): Abdominal Pain Past Medical History Vital Signs: Last Vital Signs Temp 98 F 07/16/17 17:02 Pulse 89 07/16/17 17:02 Resp 18 07/16/17 17:02 BP 115/81 07/16/17 17:02 Pulse Ox 97 07/16/17 17:02 - Medical History PMH: Anxiety, Asthma, Back Problems (scoliosis, sciatica), Bipolar Disorder, Depression, Post Traumatic Stress Disorder, Seizures Denies: HTN - [facility] Procedures GROUP PSYCHOTHERAPY (06/27/16) INDIVIDUAL PSYCHOTHERAPY, BEHAVIORAL (06/27/16) Family History: States: Unknown Family Hx - Social History Hx Tobacco Use: Yes Hx Alcohol Use: No Hx Substance Use: No - Immunization History Hx Tetanus Toxoid Vaccination: No Hx Influenza Vaccination: Yes Hx Pneumococcal Vaccination: No ED Course And Treatment - Laboratory Results Result Diagrams: 07/16/17 18:38 07/16/17 18:38 Lab Interpretation: Normal (UA neg.) Urine POC: Negative O2 Sat by Pulse Oximetry: 97 - Radiology CXR: Interpreted by Me CXR Interpretation: Yes: No Acute Disease - Other Rad abd x 2 X-Ray: Interpreted by Me (+FOS) Progress Note: pt irritated and confrontational with this MD and staff, demanding controlled substances for her chronic issues. Noted pt prescribed Klonopin 1 mg PO TID for anxiety/bipolar but UDS shows no benzo's, suggesting non-compliance or diversion. Will d/w prescribing doctor and report to [facility] Medical Decision Making Medical Decision Making: baseline bipolar/anxiety non-compliant w Klonopin pt on Klonopin [address] PO TID from Dr. Darden but UDS neg for Benzo's Consider if pt actually Bipolar Dx and if Klonopin TID is appropriate tx for this pt. Report to [facility] Malingering- drug seeking, demanding controlled substances Constipation: normal workup except for belly films, +FOS diet, exercise changes and laxatives educated. Disposition Doctor Will See Patient In The: Office Counseled Patient/Family Regarding: Studies Performed, Diagnosis - Disposition Disposition: HOME/ ROUTINE Disposition Time: 19:17 Condition: GOOD - Clinical Impression Clinical Impression: Anxiety, Abdominal bloating
--- NOTE | 2017-07-16 19:12 | C.PDOC ---
History Of Present Illness 51yo female, with history of bipolar disorder, presents to ED for evaluation of 4 months of gradual abdominal bloating. Patient denies any changes in symptoms today. Patient brought her mother in for evaluation and usually has an ER evaluation when her mother comes in. Patient has had multiple presentations seeking controlled substances; [place] [employer] reviewed and patient is on a regimen of Klonopin 1mg 3x per day and last filled for 90 tablets on 06/30/17. Currently, patient is refusing to disclose if she took her medication today. She has no other complaints. Time Seen by Provider: 07/16/17 18:07 Chief Complaint (Nursing): Abdominal Pain History Per: Patient History/Exam Limitations: no limitations Onset/Duration Of Symptoms: Persistent Current Symptoms Are (Timing): Still Present Quality Of Discomfort: Other (bloating) Past Medical History Reviewed: Historical Data, Nursing Documentation, Vital Signs Vital Signs: Last Vital Signs Temp 98 F 07/16/17 17:02 Pulse 89 07/16/17 17:02 Resp 18 07/16/17 17:02 BP 115/81 07/16/17 17:02 Pulse Ox 97 07/16/17 19:21 - Medical History PMH: Anxiety, Asthma, Back Problems (scoliosis, sciatica), Bipolar Disorder, Depression, Post Traumatic Stress Disorder, Seizures Denies: HTN - [facility] Procedures GROUP PSYCHOTHERAPY (06/27/16) INDIVIDUAL PSYCHOTHERAPY, BEHAVIORAL (06/27/16) Family History: States: Unknown Family Hx - Social History Hx Tobacco Use: Yes Hx Alcohol Use: No Hx Substance Use: No - Immunization History Hx Tetanus Toxoid Vaccination: No Hx Influenza Vaccination: Yes Hx Pneumococcal Vaccination: No Review Of Systems Except As Marked, All Systems Reviewed And Found Negative. Constitutional: Negative for: Fever, Chills Cardiovascular: Negative for: Chest Pain Respiratory: Negative for: Shortness of Breath Gastrointestinal: Positive for: Other (abdominal bloating) Physical Exam - Physical Exam Appears: Non-toxic, No Acute Distress Skin: Normal Color Head: Normacephalic Eye(s): bilateral: Normal Inspection Neck: Normal ROM, Supple Chest: Symmetrical Cardiovascular: Rhythm Regular Respiratory: Normal Breath Sounds Gastrointestinal/Abdominal: Normal Exam, Soft, No Tenderness Extremity: Normal ROM Neurological/Psych: Oriented x3, Normal Speech, Normal Cognition, Normal Motor, Normal Sensation Additional Physical Exam Comments: Patient aggressive, argumentative and demanding a different doctor and wishes to coating mixer supervisor. Patient hyperkinetic. ED Course And Treatment - Laboratory Results Result Diagrams: 07/16/17 18:38 07/16/17 18:38 O2 Sat by Pulse Oximetry: 97 (RA) Pulse Ox Interpretation: Normal - Other Rad abd x 2 X-Ray: Interpreted by Me (+ constipation) Progress Note: pt irritated and confrontational with this MD and staff, demanding controlled substances for her chronic issues. Noted pt prescribed Klonopin 1 mg PO TID for anxiety/bipolar but UDS shows no benzo's, suggesting non-compliance or diversion. Will d/w prescribing doctor and report to [facility]. 193: pt discharged from 3, this MD and Edenilson Marrufo @ bedside (this MD never @ bedside without chaparone), when evaluaiton results and discharge paperwork reviewed with patient. Pt immediatly agressive, personally threatening with Edenilson Marrufo @ bedside wittnessing. Pt insistently believes she takes her Klonopin 1 mg PO TID, and claims the herbal supplements she takes (which she cannot name ) are causing her UDS to come up false-negative. Pt wtih poor insight into her evaluation results and further denies she has ever been to our ED with a belly or back pain complaint. (many prior for same). Dr. Rangel spent extensive time @ bedside with pt and later reviewed with this MD, "this patient does not like you," and suggests minimal interactions with this pt. Aware this MD will complete eval and present findings and d/c instructions. pt @ baseline agressive, threatening and NAD @ d/c. Medical Decision Making Medical Decision Making: Impression: Abdominal bloating x 4 months Plan: -- XR Abdomen -- Labs -- Urinalysis baseline bipolar/anxiety non-compliant w Klonopin pt on Klonopin [address] Dr. Darden but UDS neg for Benzo's Consider if pt actually Bipolar Dx and if Klonopin TID is appropriate tx for this pt. Report to [facility] Malingering- drug seeking, demanding controlled substances Constipation: normal workup except for belly films, +FOS diet, exercise changes and laxatives educated. considering pt has no acute issues, and c/o abdominal bloating x 4 months, consider pt usually registers to be seen as pt when she presents w her mother as a pt (she claims to care for her mother) suggesting malingering-pt seeking secondary gain (usually controlled substances) without acute presenting complaints simply by convenience. Aggressive confrontational behavior is typical of this pt, and suggestive of poorly controlled underlying psych disorder and/or medication (benzo) withdrawal. Disposition - Disposition Referrals: Billy Darden MD [Staff Provider] - Jluis Abreu MD [Medical Doctor] - Disposition: HOME/ ROUTINE Disposition Time: 19:17 Condition: GOOD Additional Instructions: Belly Bloating: labs normal, urinalysis normal, test NEGATIVE abdominal films show significant constipation Trial a laxative now (drink a bottle of Mag Citrate) and re-evaluate your abdominal discomfort after evacuating your bowels Diet and exercise changes as educated. Anxiety: Your Drug Screen is NEGATIVE for Benzodiazepines- the Klonopin you are supposed to be taking three times a day Please take your Klonopin as prescribed by Dr. Dodie Darden Will discuss with Dr. Darden this week. Be advised: Will report this abnormal finding to [place] [facility], as required by law, for suspicion of drug non-compliance and/or drug diversion Instructions: Anxiety, Adult (DC), Gas and Bloating Forms: [facility] (Georgian) - Clinical Impression Clinical Impression: Anxiety, Abdominal bloating, Malingering - Scribe Statement The provider has reviewed the documentation as recorded by the Scribe (Lissy Eduardo) Provider Attestation: All medical record entries made by the Scribe were at my direction and personally dictated by me. I have reviewed the chart and agree that the record accurately reflects my personal performance of the history, physical exam, medical decision making, and the department course for this patient. I have also personally directed, reviewed, and agree with the discharge instructions and disposition.
[2017-07-16 19:49] VITALS: BP 109/61; PULSE 16; RESP 16; TEMP 99
[2017-07-16 19:51] VITALS: O2SAT 97
--- NOTE | 2017-07-17 08:49 | RAD ---
PROCEDURE: Radiographs of the chest and abdomen (obstructive series) HISTORY: abd pain COMPARISON: No prior. TECHNIQUE: AP radiograph of the chest, with upright and supine radiographs of the abdomen. FINDINGS: CHEST: Lungs: Clear. Cardiovascular: Normal size heart. No pulmonary vascular congestion. Pleura: No pleural fluid. No pneumothorax. Other findings: None. ABDOMEN AND PELVIS: Bowel: No evidence of bowel obstruction. Moderate retained feces. No hepatic or splenic enlargement. No masses or abnormal calcifications. Free air: None. Bones: Mild lumbar levoscoliosis. Other findings: None. IMPRESSION: Retained feces. No evidence of bowel obstruction.
== END 2017-07-16 19:55 | disposition home or self-care (01) ==
LOC: C.ER 16:53
DX: R14.0 Abdominal distension (gaseous) (principal); F41.9 Anxiety disorder, unspecified; Z76.5 Malingerer [conscious simulation]; Z72.0 Tobacco use

== ENCOUNTER 2018-03-31 11:26 | Emergency (ER) | payer MEDICAID, OTHER ==
[2018-03-31 11:27] VITALS: BMI 26.3
[2018-03-31 11:52] VITALS: BP 110/76; RESP 18; TEMP 98.1
[2018-03-31] MEDS ORDERED: Albuterol-Ipratrop 3 mg / 0.5 (3 ml) UD INH STA (12:05)
[2018-03-31] MEDS ORDERED: Albuterol-Ipratrop 3 mg / 0.5 (3 ml) UD ONE (12:22)
--- NOTE | 2018-03-31 12:51 | C.PDOC ---
History Of Present Illness 52 yo female with asthma c/o 4 days of subjective fever, cough with dark sputum, pleuritic chest pain and body aches. pt sts she ran out of both her albuterol pump and meds for nebulizer machine. pt sts she did get her flu vaccine. HPI: Influenza Time Seen by Provider: 03/31/18 11:45 Chief Complaint: Flu-like Symptoms History Per: Patient Exam Limitations: no limitations Have you had recent travel within the past 21 days to any of the following countries: [place], [place], [place] or [place]?: No Onset/Duration Of Symptoms: Days (4) Symptoms include: bodyaches, cough Sick Contacts (Context): Family Member(s) Hx Influenza Vaccination: Yes Risk factors for flu complications: Yes: chronic lung disease Past Medical History Reviewed: Historical Data, Nursing Documentation, Vital Signs Vital Signs: Last Vital Signs Temp 98.1 F 03/31/18 11:42 Pulse 77 03/31/18 11:42 Resp 18 03/31/18 11:42 BP 110/76 03/31/18 11:42 Pulse Ox 97 03/31/18 11:42 - Medical History PMH: Anxiety, Asthma, Back Problems (scoliosis, sciatica), Bipolar Disorder, Depression, Post Traumatic Stress Disorder, Seizures Denies: HTN - [facility] GROUP PSYCHOTHERAPY (06/27/16) INDIVIDUAL PSYCHOTHERAPY, BEHAVIORAL (06/27/16) Family History: States: Unknown Family Hx - Social History Hx Tobacco Use: Yes Hx Alcohol Use: No Hx Substance Use: No - Immunization History Hx Tetanus Toxoid Vaccination: No Hx Influenza Vaccination: Yes Hx Pneumococcal Vaccination: No Review Of Systems Constitutional: Positive for: Fever (subjective), Other (myalgias) Cardiovascular: Negative for: Chest Pain Respiratory: Positive for: Cough, Shortness of Breath, Pleuritic Pain, Sputum Gastrointestinal: Negative for: Abdominal Pain Musculoskeletal: Negative for: Neck Pain, Back Pain Skin: Negative for: Rash Neurological: Negative for: Weakness, Numbness Physical Exam - Physical Exam Appears: Non-toxic, No Acute Distress Skin: Warm, Dry Head: Atraumatic, Normacephalic Eye(s): bilateral: Normal Inspection Nose: No Discharge Oral Mucosa: Moist Neck: Supple Cardiovascular: Rhythm Regular, No Murmur Respiratory: No Decreased Breath Sounds, Wheezing (scattered wheezing expiratory, bilateral) Extremity: No Pedal Edema, No Calf Tenderness Neurological/Psych: Oriented x3, Normal Speech, Normal Cognition Medical Decision Making Medical Decision Making: pt with hx asthma, flu like symptoms. will get flu swab, duoneb. cxr. motrin and re-eval 1300 pt reports feeling shaky,(possibly effect of albuterol>) however is on phone taking with no difficulty in full sentences. lungs re-examined with minimal scattered wheeze noted. will give pt saline nebulizer and another albuterol neb later. 1320 pt asks if current neb tx has 'water' in it, answer yes, it is saline to help moisturize her respiratory passages. pt requests that treatment be stopped, saying she 'doesn't need any more water in her lungs. pt then asks if she was given atrovent in first treatment, to which i answer yes; pt sts 'everyone knows not to give me that because it makes me anxious'. no documentation of allergy to atrovent and pt answered none when asked if she has any allergies to me. pt offered medication for anxiety, didn't answer, jumped off bed and walked of of ft room./ 1327 pt returned to bed. lungs cta, pf up too 300 (max unknown), cxr neg, flu neg. d/c home with albuterol and prednisone. - ECG O2 Sat by Pulse Oximetry: 97 (RA) Pulse Ox Interpretation: Normal - Other Rad Chest X-Ray X-Ray: Read By Radiologist X-Ray Interpretation: IMPRESSION: No active disease. Disposition Counseled Patient/Family Regarding: Studies Performed, Diagnosis, Need For Followup, Rx Given - Disposition Referrals: [facility] [Outside] Disposition: HOME/ ROUTINE Disposition Time: 13:42 Condition: IMPROVED Additional Instructions: Drink lots of fluids,. Take sterpoids asprescrbied. Ibupforen for body aches or fever. Use inhaler 2 puffs every 6 hours. USe nebulizer if needed. Follow up wiith your doctor or in clinic next week. Prescriptions: Albuterol 0.083% [Albuterol 0.083% Inhal [place] (2.5 mg/3 ml) UD] 2.5 mg IH TID #50 neb Albuterol HFA [Ventolin HFA 90 mcg/actuation (8 g)] 2 puff IH Q6 #1 inhaler Ibuprofen [Motrin] 600 mg PO TID #30 tab predniSONE [predniSONE Tab] 2 tab PO DAILY #8 tab Instructions: Asthma, Adult (DC), Viral Upper Respiratory Infection, Adult (DC) Forms: [facility] (Vietnamese), General Discharge Instructions - Clinical Impression Clinical Impression: Upper respiratory disease, Asthma
[2018-03-31] MEDS ORDERED: Sodium Chloride 0.9% Inh Soln (3mL) UD INH STA (12:54)
--- NOTE | 2018-03-31 13:32 | RAD ---
Date of service: 03/31/2018 HISTORY: cough wheeze COMPARISON: No prior. TECHNIQUE: Chest PA and lateral FINDINGS: LUNGS: No active pulmonary disease. PLEURA: No significant pleural effusion identified. No pneumothorax apparent. CARDIOVASCULAR: No aortic atherosclerotic calcification present. Normal cardiac size. No pulmonary vascular congestion. OSSEOUS STRUCTURES: No significant abnormalities. VISUALIZED UPPER ABDOMEN: Normal. OTHER FINDINGS: None. IMPRESSION: No active disease.
[2018-03-31 13:59] VITALS: PULSE 87
--- NOTE | 2018-04-02 21:16 | CARD ---
APPROVED REPORT Date of service: 03/31/2018 EKG Measurement Heart [id number] <Conclusion> Normal sinus rhythm Low voltage QRS T wave abnormality, consider anterolateral ischemia Abnormal ECG
[2018-04-03 00:04] VITALS: O2SAT 97
== END 2018-03-31 13:58 | disposition home or self-care (01) ==
LOC: C.ER 11:26
DX: J39.9 Disease of upper respiratory tract, unspecified (principal); J45.909 Unspecified asthma, uncomplicated

== ENCOUNTER 2018-09-25 13:47 | Emergency (ER) | payer MEDICAID, OTHER ==
[2018-09-25 13:47] VITALS: BMI 26.3
[2018-09-25] MEDS ORDERED: Albuterol-Ipratrop 3 mg / 0.5 (3 ml) UD ONE ×2 (13:53→16:40)
[2018-09-25] MEDS ORDERED: Sodium Chloride 0.9% 1,000 ML IV ONE (15:00)
[2018-09-25 15:26] LABS: BASO # 0.1 K/uL (0.0-0.2); BASO % 0.6 % (0.0-2.0); HEMOGLOBIN 12.2 g/dL (11.0-16.0); LYMPH # 1.4 K/uL (1.0-4.3); LYMPH % 14.1 % (20.0-40.0); MEAN CORPUSCULAR HEMOGLOBIN 32.4 pg (27.0-31.0); MEAN PLATELET VOLUME 9.1 fL (7.2-11.7); MONO # 0.2 K/uL (0.0-0.8); MONO % 2.4 % (0.0-10.0); NEUT # 8.1 K/uL (1.8-7.0); NEUT % 82.9 % (50.0-75.0); RBC 3.78 Mil/uL (3.80-5.20); RED CELL DISTRIBUTION WIDTH 13.8 % (11.5-14.5); WHITE BLOOD COUNT 9.8 K/uL (4.8-10.8)
[2018-09-25 15:28] LABS: MEAN CELL VOLUME 92.7 fL (81.0-99.0)
[2018-09-25 15:37] LABS: ALB/GLOB RATIO 1.5 (1.0-2.1); ALBUMIN 4.4 g/dL (3.5-5.0); ALT/SGPT 20 U/L (9-52); AST/SGOT 14 U/L (14-36); BLOOD UREA NITROGEN 12 mg/dL (7-17); CALCIUM 9.9 mg/dl (8.6-10.4); GFR NON-AFRICAN AMERICAN > 60; LIPASE 12 U/L (23-300)
[2018-09-25] MEDS ORDERED: Sodium Chloride 0.9% 1,000 ML ONE (15:37)
[2018-09-25 15:53] LABS: HCG,QUALITATIVE URINE NEGATIVE (NEGATIVE)
[2018-09-25 15:55] LABS: SQUAMOUS EPITHIAL 1 /hpf (0-5); URINE AMORPHOUS SEDIMENT FEW /ul (<OCC); URINE BILIRUBIN NEGATIVE (NEGATIVE); URINE BLOOD NEGATIVE (NEGATIVE); URINE CLARITY Hazy (Clear); URINE COLOR Yellow (YELLOW); URINE GLUCOSE (UA) NORMAL (Normal); URINE LEUKOCYTE ESTERASE NEG Leu/uL (Negative); URINE PROTEIN NEGATIVE (NEGATIVE); URINE UROBILINOGEN NORMAL mg/dL (0.2-1.0)
[2018-09-25] MEDS: Albuterol-Ipratrop 3 mg / 0.5 (3 ml) UD IH SCH ×2 (16:00→16:15)
[2018-09-25 16:11] VITALS: RESP 18; O2SAT 96
[2018-09-25 16:19] LABS: BARBITURATES, UR NEGATIVE (NEGATIVE); BENZODIAZEPINES, UR NEGATIVE (NEGATIVE); PHENCYCLIDINE, UR NEGATIVE (NEGATIVE)
[2018-09-25 16:20] LABS: OPIATES, UR POSITIVE (NEGATIVE)
[2018-09-25] MEDS ORDERED: MethylPREDNISolone 40 mg Vial IVP STA (16:26)
[2018-09-25] MEDS: Albuterol 0.083% Inhal Sol (2.5 mg/3 mL) UD INH SCH ×2 (16:30→16:57)
[2018-09-25] MEDS ORDERED: Albuterol 0.083% Inhal Sol (2.5 mg/3 mL) UD ONE (16:40)
--- NOTE | 2018-09-25 17:34 | RAD ---
Date of service: 09/25/2018 HISTORY: cough, wheezing COMPARISON: 03/31/2018. TECHNIQUE: Chest PA and lateral views FINDINGS: LUNGS: No active pulmonary disease. PLEURA: No significant pleural effusion identified. No pneumothorax apparent. CARDIOVASCULAR: No aortic atherosclerotic calcification present. No radiographic findings to suggest acute or significant cardiovascular disease. No pulmonary vascular congestion. OSSEOUS STRUCTURES: No significant abnormalities. VISUALIZED UPPER ABDOMEN: Normal. OTHER FINDINGS: None. IMPRESSION: No active disease. No significant interval change compared to the prior examination(s).
--- NOTE | 2018-09-25 18:21 | C.PDOC ---
History Of Present Illness 52 y/o female,w/PMhx of asthma/COPD, pysch disorder, and chronic pain presents to the ER for evaluation of bronchitis. Patient states that she was recently diagnosed with bronchitis. She is complaining of cough and wheezing. She states that she has associated back and rib pain. She saw her PMD recently and she was prescribed Prednisone, Z-Pack, and Albuterol Pump.Patient states that she takes Percocet for chronic pain and Clozapine for anxiety.Denies having fever,chills, headache,dizziness, nausea, vomiting, and abdominal pain. Time Seen by Provider: 09/25/18 14:28 Chief Complaint (Nursing): Shortness Of Breath History Per: Patient History/Exam Limitations: no limitations Onset/Duration Of Symptoms: Days Current Symptoms Are (Timing): Still Present Past Medical History Vital Signs: Last Vital Signs Temp 98.7 F 09/25/18 16:10 Pulse 100 H 09/25/18 16:10 Resp 18 09/25/18 16:10 BP 94/66 L 09/25/18 16:10 Pulse Ox 96 09/25/18 16:10 Primary Care Provider: Jluis Abreu - Medical History PMH: Anxiety, Asthma, Back Problems (scoliosis, sciatica), Bipolar Disorder, Depression, Post Traumatic Stress Disorder Denies: Diabetes, Hepatitis, HIV, HTN, Seizures, Sexually Transmitted Disease - [facility] Procedures GROUP PSYCHOTHERAPY (06/27/16) INDIVIDUAL PSYCHOTHERAPY, BEHAVIORAL (06/27/16) Family History: States: Unknown Family Hx - Social History Hx Tobacco Use: Yes Hx Alcohol Use: No Hx Substance Use: No - Immunization History Hx Tetanus Toxoid Vaccination: No Hx Influenza Vaccination: Yes Hx Pneumococcal Vaccination: No Review Of Systems Except As Marked, All Systems Reviewed And Found Negative. Constitutional: Negative for: Fever, Chills Respiratory: Positive for: Cough, Wheezing Gastrointestinal: Positive for: Diarrhea. Negative for: Nausea, Vomiting, Abdominal Pain Musculoskeletal: Positive for: Back Pain Neurological: Negative for: Headache, Dizziness Physical Exam - Physical Exam Appears: Non-toxic, Other (very anxious, tremulous,afebrile) Skin: Normal Color, Warm, Dry Head: Atraumatic, Normacephalic Eye(s): bilateral: Normal Inspection Nose: Normal Oral Mucosa: Moist Neck: Supple Chest: Symmetrical Cardiovascular: Rhythm Regular Respiratory: No Rales, No Rhonchi, Wheezing (bilateral wheezing) Gastrointestinal/Abdominal: Normal Exam, Soft, No Tenderness, No Guarding, No Rebound Neurological/Psych: Oriented x3, Normal Speech ED Course And Treatment - Laboratory Results Result Diagrams: 09/25/18 15:21 09/25/18 15:21 Lab Results: Total Bilirubin 0.3 mg/dL (0.2-1.3) 09/25/18 15:21 AST 14 U/L (14-36) D 09/25/18 15:21 ALT 20 U/L (9-52) 09/25/18 15:21 Alkaline Phosphatase 68 U/L (38-126) 09/25/18 15:21 Total Protein 7.4 g/dL (6.3-8.3) 09/25/18 15: Albumin 4.4 g/dL (3.5-5.0) 09/25/18 15:21 Globulin 3.0 gm/dL (2.2-3.9) 09/25/18 15:21 Albumin/Globulin Ratio 1.5 (1.0-2.1) 09/25/18 15:21 Lipase 12 U/L (23-300) L 09/25/18 15:21 Urine Color Yellow (YELLOW) 09/25/18 15:44 Urine Clarity Hazy (Clear) 09/25/18 15:44 Urine pH 7.0 (5.0-8.0) 09/25/18 15:44 Ur Specific [place] 1.016 (1.003-1.030) 09/25/18 15:44 Urine Protein Negative mg/dL (NEGATIVE) 09/25/18 15:44 Urine Glucose (UA) Normal mg/dL (Normal) 09/25/18 15:44 Urine Ketones Negative mg/dL (NEGATIVE) 09/25/18 15:44 Urine Blood Negative (NEGATIVE) 09/25/18 15:44 Urine Nitrate Negative (NEGATIVE) 09/25/18 15:44 Urine Bilirubin Negative (NEGATIVE) 09/25/18 15:44 Urine Urobilinogen Normal mg/dL (0.2-1.0) 09/25/18 15:44 Ur Leukocyte Esterase Neg [place] Ann/uL (Negative) 09/25/18 15:44 Urine WBC (Auto) 2 /hpf (0-5) 09/25/18 15:44 Urine RBC (Auto) 1 /hpf (0-3) 09/25/18 15:44 Ur Squamous Epith Cells 1 /hpf (0-5) 09/25/18 15:44 Amorphous Sediment Few /ul (<OCC) H 09/25/18 15:44 Urine HCG, Qual Negative (NEGATIVE) 09/25/18 15:44 Urine HCG, Qual Negative (NEGATIVE) 09/25/18 15:44 O2 Sat by Pulse Oximetry: 96 (RA) Pulse Ox Interpretation: Normal Medical Decision Making Medical Decision Making: Differential: Pneumonia, Bronchitis, anxiety, COPD, medicine seeking behavior Plan: --Labs --UA --CXR --IV Fluids --Klonopin PO --Solu-Medrol IV Disposition Counseled Patient/Family Regarding: Studies Performed, Diagnosis, Need For Followup - Disposition Disposition: HOME/ ROUTINE Disposition Time: 18:23 Condition: STABLE Additional Instructions: Follow up with your doctor. Take your medications as indicated. Prescriptions: Albuterol 0.083% [Albuterol 0.083% Inhal [place]ore[place] (2.5 mg/3 ml) UD] 2.5 mg IH BID #24 neb Instructions: Acute Bronchitis Forms: [facility] (Georgian), General Discharge Instructions - POA Present On Arrival: None - Clinical Impression Clinical Impression: Bronchitis - Scribe Statement The provider has reviewed the documentation as recorded by the Stevieibe Natalie Wagoner Provider Attestation: All medical record entries made by the Scribe were at my direction and personally dictated by me. I have reviewed the chart and agree that the record accurately reflects my personal performance of the history, physical exam, medical decision making, and the department course for this patient. I have also personally directed, reviewed, and agree with the discharge instructions and disposition.
[2018-09-25 18:35] VITALS: BP 108/71; PULSE 66; TEMP 97.9
== END 2018-09-25 18:34 | disposition home or self-care (01) ==
LOC: C.ER 13:47
DX: J40 Bronchitis, not specified as acute or chronic (principal); F17.210 Nicotine dependence, cigarettes, uncomplicated
CPT/HCPCS: 71046; 80053; 80324; 80345; 80346; 80349; 80353; 80358; 80361; 81001; 83690; 83992; 84703; 85025; 96361; 96374; 99284; J2920; J7030